=== PATIENT | male | born 1955 | race Two or more races ===

== ENCOUNTER 2017-09-12 15:39 | Emergency (ER) | payer SELFPAY ==
[~2017-09-12] VITALS: Ht 152.4 cm; Wt 54.4 kg
[~2017-09-12 15:39] MED LIST: AMLO5TAB2 PO; AMOX1TAB61 PO; CHOL4POW11 PO; COLE1TAB PO; HYDR12.58 PO; IBUP200C PO; LISI10TA2 PO; LOPE2TAB27 PO; METF500T4 PO; METF850T2 PO; OMEP20TA63 PO; PANT40TA5 PO
[2017-09-12] MEDS ORDERED: DICYCLOMINE 20 MG/2 ML AMPUL. IM STA (15:58)
[2017-09-12] MEDS ORDERED: IV NORMAL SALINE 1000ML BAG 1,000 ML IV SCH (16:00)
[2017-09-12 16:10] LABS: BASO % 1 % (0-3); EOS % 2 % (0-3); HEMATOCRIT 32.1 % (39.0-53.0); HEMOGLOBIN 10.6 g/dL (13.0-17.5); LYMPH # 1.2 x10^3/uL (1.0-4.8); LYMPH % 18 % (24-48); MEAN CORPUSCULAR HEMOGLOBIN 31 pg (25-35); MEAN CORPUSCULAR HGB CONC 33 g/dL (31-37); MEAN CORPUSCULAR VOLUME 93 fL (79-100); MONO % 10 % (0-9); NEUT % 69 % (31-73); PLATELET COUNT 221 x10^3/uL (140-400); RED BLOOD COUNT 3.46 x10^6/uL (4.30-5.70); RED CELL DISTRIBUTION WIDTH 13.4 % (11.5-14.5); WHITE BLOOD COUNT 6.8 x10^3/uL (4.0-11.0)
[2017-09-12] MEDS ORDERED: DEXTROSE 50% 25 GM / 50ML DISP.SYRIN. IV ONE (16:15)
[2017-09-12] MEDS ORDERED: ONDANSETRON PF 4 MG/2 ML VIAL. IV ONE (16:15)
[2017-09-12 16:16] LABS: BILIRUBIN,URINE NEGATIVE (NEG); GLUCOSE,URINE 100 mg/dL (NEG); NITRITE,URINE NEGATIVE (NEG); PROTEIN,URINE 100 mg/dL (NEG-TRACE); UROBILINOGEN,URINE 0.2 mg/dL (0.2 mg/dL)
[2017-09-12 16:19] LABS: CALCIUM 8.1 mg/dL (8.5-10.1); CREATININE 0.8 mg/dL (0.7-1.3); GFR 98.6; POTASSIUM 3.5 mmol/L (3.5-5.1)
--- NOTE | 2017-09-12 16:20 | PHYS DOC ---
Past Medical History Past Medical History: Diabetes-Type II Additional Past Medical Histor: POOR HISTORIAN Past Surgical History: No Surgical History Additional Past Surgical Histo: POOR HISTORIAN Alcohol Use: None Drug Use: None Adult General Chief Complaint Chief Complaint: HYPOGLYCEMIA HPI HPI Patient is a 61 year old male who presents with complaint of generalized weakness and abdominal pain. The patient was brought to the emergency department by EMS after patient was found driving erratically in his car. They noted that the patient had a low blood sugar and patient was administered dextrose IV prior to arrival. This improved the patient's symptoms as he initially was noted to be confused. The patient states that he is still feeling weak and having abdominal discomfort. The patient was admitted to the hospital 2 days ago and discharge her earlier today for workup of chest pain. The patient was seen by gastroenterology and was started on Colestid for treatment of postprandial abdominal cramping and diarrhea. Patient denies any fevers and denies any chest pain currently. Patient does have abdominal cramping. Patient on my exam rates his pain as 6 out of 10. Review of Systems Review of Systems Constitutional: Dizziness, fever or chills [] Eyes: Denies change in visual acuity, redness, or eye pain [] HENT: Denies nasal congestion or sore throat [] Respiratory: Denies cough or shortness of breath [] Cardiovascular: Denies chest pain or edema[] GI: Abdominal pain, diarrhea[] : Denies dysuria or hematuria [] Musculoskeletal: Denies back pain or joint pain [] Integument: Denies rash or skin lesions [] Neurologic: Denies headache, focal weakness or sensory changes [] All other systems were reviewed and found to be within normal limits, except as documented in this note. Current Medications Current Medications Current Medications Medications (Trade) Dose Ordered Sig/Cecil Start Time Stop Time Status Last Admin Dose Admin Dextrose (Dextrose 50%-Water Syringe) 12.5 gm 1X ONCE 09/12/17 16:15 09/12/17 16:16 DC 09/12/17 16:19 12.5 GM Dicyclomine HCl (Bentyl) 10 mg 1X STAT 09/12/17 15:58 09/12/17 16:02 DC 09/12/17 15:58 10 MG Ondansetron HCl (Zofran) 4 mg 1X ONCE 09/12/17 16:15 09/12/17 16:16 DC 09/12/17 16:17 4 MG Sodium Chloride 1,000 ml @ 1,000 mls/hr Q1H 09/12/17 16:00 09/12/17 16:59 DC 09/12/17 16:22 1,000 MLS/HR Allergies Allergies Allergies Coded Allergies Type Severity Reaction Last Updated Verified No Known Drug Allergies 09/10/17 No Physical Exam Physical Exam Constitutional: Alert, afebrile, appears mild to moderate discomfort. [] HENT: Normocephalic, atraumatic, bilateral external ears normal, oropharynx moist, no oral exudates, nose normal. [] Eyes: PERRLA, EOMI, conjunctiva normal, no discharge. [] Neck: Normal range of motion, no tenderness, supple, no stridor. [] Cardiovascular:Heart rate regular rhythm, no murmur [] Lungs & Thorax: Bilateral breath sounds clear to auscultation [] Abdomen: Bowel sounds normal, soft, no tenderness, no masses, no pulsatile masses. [] Skin: Warm, dry, no erythema, no rash. [] Back: No tenderness, no CVA tenderness. [] Extremities: No tenderness, no cyanosis, no clubbing, ROM intact, no edema. [] Neurologic: Alert and oriented X 3, normal motor function, normal sensory function, no focal deficits noted. [] Current Patient Data Vital Signs Vital Signs Date Time Temp Pulse Resp B/P (MAP) Pulse Ox O2 Delivery O2 Flow Rate FiO2 09/12/17 15:40 98.0 61 19 154/89 (110) 99 Room Air 98.0 Lab Values Laboratory Tests Test 09/12/17 15:45 09/12/17 15:50 09/12/17 15:56 09/12/17 16:57 Urine Collection Type Unknown Urine Color Yellow Urine Clarity Cloudy Urine pH 6.0 Urine Specific Frost 1.010 Urine Protein 100 mg/dL (NEG-TRACE) Urine Glucose (UA) 100 mg/dL (NEG) Urine Ketones (Stick) Negative mg/dL (NEG) Urine Blood Small (NEG) Urine Nitrite Negative (NEG) Urine Bilirubin Negative (NEG) Urine Urobilinogen Dipstick 0.2 mg/dL (0.2 mg/dL) Urine Leukocyte Esterase Large (NEG) Urine RBC 1-2 /HPF (0-2) Urine WBC 11-20 /HPF (0-4) Urine Squamous Epithelial Cells Mod /LPF Urine Bacteria Few /HPF (0-FEW) Urine Mucus Mod /LPF White Blood Count 6.8 x10^3/uL (4.0-11.0) Red Blood Count 3.46 x10^6/uL (4.30-5.70) L Hemoglobin 10.6 g/dL (13.0-17.5) L Hematocrit 32.1 % (39.0-53.0) L Mean Corpuscular Volume 93 fL (79-100) Mean Corpuscular Hemoglobin 31 pg (25-35) Mean Corpuscular Hemoglobin Concent 33 g/dL (31-37) Red Cell Distribution Width 13.4 % (11.5-14.5) Platelet Count 221 x10^3/uL (140-400) Neutrophils (%) (Auto) 69 % (31-73) Lymphocytes (%) (Auto) 18 % (24-48) L Monocytes (%) (Auto) 10 % (0-9) H Eosinophils (%) (Auto) 2 % (0-3) Basophils (%) (Auto) 1 % (0-3) Neutrophils # (Auto) 4.7 x10^3uL (1.8-7.7) Lymphocytes # (Auto) 1.2 x10^3/uL (1.0-4.8) Monocytes # (Auto) 0.7 x10^3/uL (0.0-1.1) Eosinophils # (Auto) 0.1 x10^3/uL (0.0-0.7) Basophils # (Auto) 0.0 x10^3/uL (0.0-0.2) Sodium Level 141 mmol/L (136-145) Potassium Level 3.5 mmol/L (3.5-5.1) Chloride Level 108 mmol/L (98-107) H Carbon Dioxide Level 22 mmol/L (21-32) Anion Gap 11 (6-14) Blood Urea Nitrogen 6 mg/dL (8-26) L Creatinine 0.8 mg/dL (0.7-1.3) Estimated GFR (Cockcroft-Gault) 98.6 BUN/Creatinine Ratio 8 (6-20) Glucose Level 65 mg/dL (70-99) L Calcium Level 8.1 mg/dL (8.5-10.1) L Total Bilirubin 0.4 mg/dL (0.2-1.0) Aspartate Amino Transferase (AST) 22 U/L (15-37) Alanine Aminotransferase (ALT) 26 U/L (16-63) Alkaline Phosphatase 228 U/L (46-116) H Total Protein 6.6 g/dL (6.4-8.2) Albumin 2.4 g/dL (3.4-5.0) L Albumin/Globulin Ratio 0.6 (1.0-1.7) L Glucose (Fingerstick) 59 mg/dL (70-99) L 96 mg/dL (70-99) Laboratory Tests 09/12/17 15:50 Laboratory Tests 09/12/17 15:50 EKG EKG Interpreted by me: Heart rate 70, sinus rhythm, normal intervals, leftward axis , no acute ST/T-wave abnormalities present[] Radiology/Procedures Radiology/Procedures Not performed[] Course & Med Decision Making Course & Med Decision Making Pertinent Labs and Imaging studies reviewed. (See chart for details) Patient was given IV fluids, Zofran, and Bentyl in the emergency department. The patient was able to tolerate oral intake after treatment and patient's blood sugars continued to improve. The patient states he feels much better at this time. The patient will be discharged home with recommended follow-up in the next 2-3 days with primary doctor for reevaluation. The patient states he does have an appointment with his primary doctor on Thursday which is in 2 days. Patient will be prescribed Zofran as needed for nausea. Advised patient to continue to check his blood sugars at home and to not miss any meals while taking his insulin. Advised return emergency department for any worsening symptoms. Patient voiced understanding and in agreement with treatment plan. Dragon Disclaimer Dragon Disclaimer This electronic medical record was generated, in whole or in part, using a voice recognition dictation system. Departure Departure Impression: Primary Impression: Hypoglycemia Additional Impression: Chronic abdominal pain Disposition: HOME, SELF-CARE Condition: STABLE Referrals: NO PCP (PCP) Patient Instructions: Hypoglycemia (Low Blood Sugar) Additional Instructions: Follow-up with your primary doctor in 2-3 days. Return to emergency department for any worsening symptoms. Scripts Ondansetron (ZOFRAN ODT) 4 Mg Tab.rapdis 1 TAB SL Q8HRS Y for NAUSEA/VOMITING, #15 TAB Prov: MALCOM TRUJILLO MD 09/12/17 Problem Qualifiers MALCOM TRUJILLO MD Sep 12, 2017 16:20
[2017-09-12 16:23] LABS: BACTERIA,URINE FEW /HPF (0-FEW); SQUAMOUS EPITHELIAL CELL,UR MOD /LPF
[2017-09-12 16:27] LABS: ALBUMIN 2.4 g/dL (3.4-5.0); ALBUMIN/GLOBULIN RATIO 0.6 (1.0-1.7); TOTAL BILIRUBIN 0.4 mg/dL (0.2-1.0); TOTAL PROTEIN 6.6 g/dL (6.4-8.2)
--- NOTE | 2017-09-12 16:42 | EKG ---
[facility] [address] [place] [id number] Test Date: 2017-09-12 Test Time: 16:39:11 Pat Name: ZEKE GR Department: Room: Gender: M Certified Physician Assistant: : [id number] Requested By: MALCOM TRUJILLO Order Number: [id number] Reading MD: Measurements Intervals Bude Rate: 69 P: 90 LA: 142 QRS: 4 QRSD: 108 T: 42 QT: 380 QTc: 413 Interpretive Statements SINUS RHYTHM LEFT ATRIAL ABNORMALITY ST & T ABNORMALITY, CONSIDER RECENT INFERIOR MYOCARDIAL OR PERICARDIAL DAMAGE ABNORMAL ECG No previous ECG available for comparison
[2017-09-12 18:00] VITALS: BP 164/91
[2017-09-12] MEDS ORDERED: ONDA4TAB10 SL (18:00)
--- NOTE | 2017-09-15 13:07 | VNOTE ---
CALL BACK NOTE CALL BACK Microbiology 09/12/17 Urine Culture - Final, Complete 09/12/17 Urine Culture Result 1 (JARET) - Final, Complete 09/12/17 Urine Culture Result 2 (JARET) - Final, Complete 09/12/17 Antimicrobic Susceptibility - Final, Complete Called patient regarding his urine culture. No voicemail. Certified with the results will be mailed to patient. MARY STACY APRN Sep 15, 2017 13:07
== END 2017-09-12 18:25 | disposition home or self-care (01) ==
LOC: ER 15:39 → MERGE 15:39 → ER 18:25
DX: E11.649 Type 2 diabetes mellitus with hypoglycemia without coma (principal); G89.29 Other chronic pain; R10.9 Unspecified abdominal pain; R19.7 Diarrhea, unspecified; R53.1 Weakness
CPT/HCPCS: 36415; 80053; 81001; 82962; 85025; 87086; 93005; 96361; 96372; 96374; 96375; 99285; J0500; J2405; J7030; 87186; J7042